=== PATIENT | female | born 1990 | race African-American/Black ===

== ENCOUNTER 2019-05-21 21:16 | Emergency (ER) | payer MEDICAID ==
[~2019-05-21] VITALS: Ht 162.6 cm; Wt 113.5 kg
[2019-05-21] MEDS ORDERED: DIPHENHYDRAMINE 50MG/ML VIAL IM ONE (23:00)
[2019-05-21] MEDS ORDERED: PREDNISONE 20MG TABLET PO ONE (23:00)
[2019-05-21 23:24] VITALS: BP 130/79
== END 2019-05-21 23:24 | disposition home or self-care (01) ==
LOC: ER 21:26
DX: T78.40XA Allergy, unspecified, initial encounter (principal); R06.02 Shortness of breath; R07.89 Other chest pain; X58.XXXA Exposure to other specified factors, initial encounter
CPT/HCPCS: 96372; 99283; J1200; J7512